=== PATIENT | male | born 1965 | race Caucasian/White ===

== ENCOUNTER 2016-06-13 11:14 | Inpatient (IN) | payer MEDICAID, OTHER ==
[~2016-06-13] VITALS: Ht 175.3 cm; Wt 178.3 kg
[2016-06-13 11:35] VITALS: BP 185/101
[2016-06-13] MEDS ORDERED: FAMOTIDINE 20 MG/2 ML VIAL IVP ONE (11:35)
[2016-06-13] MEDS ORDERED: NACL 0.9% 1,000 ML IV SCH (11:35)
[2016-06-13] MEDS ORDERED: ONDANSETRON 4 MG/2 ML VIAL IVP ONE ×2 (11:35→16:25)
[2016-06-13] MEDS ORDERED: ALEVE220 MG PO (11:37)
--- NOTE | 2016-06-13 11:39 | NUR ---
Patient ambulated to bed 6 with family. RN evaluating patient at bedside.
--- NOTE | 2016-06-13 11:42 | NUR ---
Note undone in EDM - 06/13/16 at 1331 by [email or web address] 50/M BIB FAMILY C/O EPIGASTRIUM PAIN & DIARRHEA X 3 DAYS. PT DENIES N/V; SKIN IS PINK/WARM/DRY; AAOX4 WITH EVEN AND STEADY GAIT; LUNGS CLEAR BL; HR EVEN AND REGULAR; PT DENIES ANY FEVER, CP, SOB, OR COUGH AT THIS TIME; PATIENT STATES PAIN OF 7/10 AT THIS TIME; PATIENT POSITIONED FOR COMFORT; HOB ELEVATED; BEDRAILS UP X2; BED DOWN. ER MADE AWARE OF PT STATUS.
--- NOTE | 2016-06-13 11:42 | NUR ---
50/M BIB FAMILY C/O EPIGASTRIUM PAIN & DIARRHEA X 3 DAYS. PT STATES PT HAS DIARRHEA 3 TIMES XTODAY. PT DENIES N/V; SKIN IS PINK/WARM/DRY; AAOX4 WITH EVEN AND STEADY GAIT; LUNGS CLEAR BL; HR EVEN AND REGULAR; PT DENIES ANY FEVER, CP, SOB, OR COUGH AT THIS TIME; PATIENT STATES PAIN OF 7/10 AT THIS TIME; PATIENT POSITIONED FOR COMFORT; HOB ELEVATED; BEDRAILS UP X2; BED DOWN. ER MD MADE AWARE OF PT STATUS.
--- NOTE | 2016-06-13 11:44 | NUR ---
ER MD DR RIVERA EVALUATING PT AT BEDSIDE.
--- NOTE | 2016-06-13 12:37 | NUR ---
PT TAKEN TO CT VIA GURARACELI ACCOMPANIED BY LOCK AND DAM EQUIPMENT REPAIRER.
--- NOTE | 2016-06-13 13:00 | NUR ---
Patient appears to be resting comfortably in bed. Vital Signs within normal limits. Respirations even and unlabored. WILL CONTINUE TO MONITOR.
--- NOTE | 2016-06-13 13:00 | NUR ---
URINAL PROVIDED TO PT FOR URINE SAMPLE.WILL CONTINUE TO MONITOR.
[2016-06-13] MEDS ORDERED: LACTATED RINGERS 1,000 ML IV ONE (14:00)
[2016-06-13] MEDS ORDERED: ONDANSETRON 4 MG/2 ML VIAL IVP SCH (14:05)
[2016-06-13] MEDS ORDERED: HYDROmorphone 1 MG/ML AMP IVP SCH (14:05)
--- NOTE | 2016-06-13 14:32 | NUR ---
PT TO BE TAKEN TO SURGERY AT 1500 .WILL GIVE REPORT TO SALES RECRUITING COORDINATOR.
--- NOTE | 2016-06-13 14:51 | NUR ---
RECEIVED CALL FROM FUNDING COORDINATOR; FUNDING COORDINATOR STATES WILL COME TO TAKE PT TO SURGERY AND GET REPORT IN ER.
--- NOTE | 2016-06-13 14:58 | NUR ---
Patient will be admitted to care of DR. Bailey MANRIQUE. Admited to M/S. Will go to room 105B Belongings list completed. Report to ELECTRONIC COMPONENT PROCESSORLUPE HOLDER. PT TAKEN TO SURGERY VIA RARACELI ACCOMPANIED BY LUPE HOLDER AND LUPE PINEDA AT THIS TIME.
[2016-06-13] MEDS ORDERED: MIDAZOLAM 2 MG/2 ML VIAL ONE (15:14)
[2016-06-13] MEDS ORDERED: fentaNYL 0.05 MG/ML VIAL ONE (15:14)
[2016-06-13] MEDS ORDERED: MEPERIDINE 50 MG/ML SYR ONE (15:15)
[2016-06-13] MEDS ORDERED: BUPIVACAINE-MPF/EPI 0.5% 30 ML VIAL INJ ONE ×2 (15:17→16:52)
[2016-06-13] MEDS ORDERED: HYDROmorphone 1 MG/ML AMP IVP PRN ×2 (15:35→16:00)
[2016-06-13] MEDS ORDERED: ONDANSETRON 4 MG/2 ML VIAL IVP PRN ×2 (15:50→16:00)
[2016-06-13] MEDS ORDERED: LORazepam 2 MG/ML VIAL IVP PRN (15:50)
[2016-06-13] MEDS ORDERED: ACETAMINOPHEN 325 MG TAB PO PRN (15:50)
[2016-06-13] MEDS ORDERED: LACTATED RINGERS 1,000 ML IV SCH (15:57)
[2016-06-13] MEDS ORDERED: diphenhydrAMINE 50 MG/ML VIAL IVP PRN (16:00)
[2016-06-13] MEDS ORDERED: PIPER/TAZO 3.375GM/D5W PREMIX 50 ML IV ONE (16:00)
[2016-06-13] MEDS ORDERED: MEPERIDINE 25 MG/ML SYR IVP PRN (16:00)
[2016-06-13] MEDS ORDERED: PIPERACILLIN/TAZOBACTAM 3.375 GM VIAL IV ONE ×4 (16:03→23:43)
[2016-06-13] MEDS ORDERED: PHENYLEPHRINE 10 MG/ML VIAL IM ONE (16:25)
[2016-06-13] MEDS ORDERED: GLYCOPYRROLATE 0.2 MG/ML VIAL IV ONE (16:25)
[2016-06-13] MEDS ORDERED: DEXAMETHASONE 4 MG/ML VIAL IVP ONE (16:25)
[2016-06-13] MEDS ORDERED: SUCCINYLCHOLINE CHLORIDE 200 MG/10 ML VIAL IV ONE (16:25)
[2016-06-13] MEDS ORDERED: SEVOFLURANE 250 ML BTL INH ONE (16:25)
[2016-06-13] MEDS ORDERED: PROPOFOL 200 MG/20 ML VIAL IV ONE (16:25)
[2016-06-13] MEDS ORDERED: ROCURONIUM 50 MG/5 ML VIAL IV ONE (16:25)
--- NOTE | 2016-06-13 17:35 | NUR ---
PATIENT NOT IN ROOM PER ISIDRO/RN PATIENT IN OR RECOVERY SPECIALIST EMPLOYEE LABOR RELATIONS TO PASS ON TO NOC SHIFT
[2016-06-13 17:55] VITALS: BP 127/70
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
[2016-06-13] MEDS: PIPERACILLIN/TAZOBACTAM 3.375 GM in DEXTROSE 5% 50 ML IV SCH ×3 (18:00→23:49)
[2016-06-13] MEDS: DEXT 5% / NACL 0.45% 1,000 ML IV SCH ×2 (18:00→23:49)
--- NOTE | 2016-06-13 18:30 | NUR ---
PT'S DAUGHTER CAME. SITTING WITH PT NOW. PT STILL SLEEPING. Addendum: 06/13/16 at 1849 by Kelsey Jones RN 1810: V/S 124/71; 65; 96%; 97.2F 1825: V/S 138/85; 66; 96%; 97.9F 1840: V/S 143/94; 70; 96%; 98.8F
--- NOTE | 2016-06-13 18:55 | NUR ---
ENDORSED PT TO THE SUPPLY TECHNICIAN NURSE AT BEDSIDE FOR CONTINUITY OF CARE. PT IS SLEEPING. PT IS IN STABLE CONDITION.
--- NOTE | 2016-06-13 19:28 | NUR ---
RECEIVED REPORT FROM LUPE FELIX, AT BEDSIDE. INITIAL ASSESSMENT AND BODY CHECK DONE. PATIENT AAO X 4, ABLE TO FOLLOW COMMAND AND MAKE NEEDS KNOWN AND AMBULATORY. PATIENT CURRENTLY LYING DOWN ON THE BED. NO S/S OF DISTRESS NOR ANY POTENTIAL COMPLICATION NOTED. SKIN WARM/DRY TO TOUCH WITH NORMAL COLOR. NOTED CLOSED 4 ABDOMINAL INCISIONS WITHOUT ACTIVE BLEEDING NOTED. PATIENT STILL STATED WITH SOME ABDOMINAL PAIN, 6/10, AT THIS TIME. DISCUSSED PLAN OF CARE, PAIN MANAGEMENT AND MEDICATION REGIMEN WITH PATIENT AND PATIENT VERBALIZED UNDERSTANDING. PLACED PATIENT ON SAFETY PRECAUTIONS AND WILL CONTINUE TO MONITOR. CALL LIGHT LEFT WITHIN REACH. FAMILY AT BEDSIDE.
[2016-06-13 20:00] VITALS: BP 138/84
[2016-06-13] MEDS: MORPHINE SULFATE 2 MG/ML SYR IVP PRN (20:01)
--- NOTE | 2016-06-13 20:16 | NUR ---
PT ASLEEP, CAN NOT PERFORM IS
--- NOTE | 2016-06-13 20:41 | NUR ---
ADMINISTERED ABX AND PAIN MEDICATIONS MD'S ORDERED WITH EDUCATION GIVEN. PATIENT COMPLYING WITH MEDICATIONS AND CARE. STATED WITH SOME PAIN RELIEF AFTER 30 MINS POST-MEDICATION. ALL NEEDS ARE ATTENDED. KEPT PATIENT IN COMFORTABLE POSITION/WARM AND WILL CONTINUE TO MONITOR.
[2016-06-14] VITALS: BP 121/73
--- NOTE | 2016-06-14 00:20 | NUR ---
PATIENT RESTED COMFORTABLY IN BED, EASILY AROUSED AND REMAINED IN STABLE CONDITION. NO APPARENT DISTRESS NOTED. WILL CONTINUE TO MONITOR.
--- NOTE | 2016-06-14 01:00 | NUR ---
PATIENT URINATED 800 ML CLEAR/YELLOW URINE. OBTAINED SOME SAMPLE AND SENT TO THE LAB.
--- NOTE | 2016-06-14 04:14 | NUR ---
PATIENT IS CLINICALLY STABLE AND NO APPARENT DISTRESS NOTED. WILL CONTINUE TO MONITOR.
[2016-06-14] MEDS ORDERED: PIPERACILLIN/TAZOBACTAM 3.375 GM VIAL IV ONE (05:14)
[2016-06-14] MEDS: PIPERACILLIN/TAZOBACTAM 3.375 GM in DEXTROSE 5% 50 ML IV SCH (05:14)
[2016-06-14] MEDS: MORPHINE SULFATE 2 MG/ML SYR IVP PRN ×2 (06:05→10:27)
--- NOTE | 2016-06-14 07:12 | NUR ---
ENDORSED PLAN OF CARE TO LUPE FOWLER, AT BEDSIDE. PATIENT RESTED WELL THROUGHOUT THE SHIFT AND REMAINED IN STABLE CONDITION. NO DISTRESS NOTED.
--- NOTE | 2016-06-14 07:13 | NUR ---
RECEIVED REPORT FROM LUPE ORTEGA. PT RESTING ON BED WITH AT BEDSIDE. PT IS AAOX4, IV IS ON THE RT AC, PATENT AND INTACT, INFUSING FLUID WELL. 4 INCISIONS ON ABDOMEN OPEN TO AIR WITH NO DRAINAGE NOTED, S/P LAP APPY. INITIAL ASSESSMENT DONE, NO S/S OF RESPIRATORY DISTRESS OR DISCOMFORT NOTED. DISCUSSED PLAN OF CARE, PT VERBALIZED UNDERSTANDING. SAFETY/FALL PRECAUTION ENFORCED. CALL LIGHT WITHIN REACH. WILL CONTINUE TO MONITOR
[2016-06-14 08:00] VITALS: BP 118/62
[2016-06-14] MEDS: DEXT 5% / NACL 0.45% 1,000 ML IV SCH ×2 (09:59→17:05)
--- NOTE | 2016-06-14 10:26 | NUR ---
PATIENT HAS BEEN SCREENED AND CATEGORIZED HIGH NUTRITION RISK. PATIENT WILL BE SEEN WITHIN 1-2 DAYS OF ADMISSION. 06/14/16-06/15/[address]
--- NOTE | 2016-06-14 10:35 | NUR ---
ENDORSED PT TO LUPE KERR FOR CONTINUITY OF CARE. PT IS STABLE AT THIS TIME.
--- NOTE | 2016-06-14 10:37 | NUR ---
RECEIVED REPORT FROM LUPE COLEY. PT SLEEPING IN BED. NO S/S OF ACUTE DISTRESS. IV SITE PATENT AND INTACT. CALL LIGHT WITHIN REACH. SAFETY MEASURES ENSURED. WILL CONTINUE TO MONITOR.
--- NOTE | 2016-06-14 10:39 | NUR ---
WOUND CARE NOTES: UNABLE TO ASSESS WOUND SITES AT THIS TIME, PATIENT IS ASLEEP. STATED THAT PATIENT JUST GOT HIS PAIN MED AND IF I COULD COME BACK LATER. WILL FOLLOW UP.
--- NOTE | 2016-06-14 11:05 | NUR ---
AWAKE AND ALERT EDUCATION PROVIDED WITH ACKNOWLEDGEMENT ON INCENTIVE SPIROMETRY (IS) TOLERATED ONLY FIVE BREATH HOLDS DUE TO ABDOMINAL PAIN USHA/RN NOTIFIED ENCOURAGED PATIENT TO USE IS EVERY ONE HOUR WHILE AWAKE
--- NOTE | 2016-06-14 12:47 | NUR ---
PT UP AND AMBULATING IN [place]. NO S/S OF ACUTE DISTRESS. PT DENIES ANY DIZZINESS.
[2016-06-14] MEDS: PIPER/TAZO 3.375GM/D5W PREMIX 50 ML IV SCH ×2 (12:56→18:06)
--- NOTE | 2016-06-14 15:50 | NUR ---
PT IS RESTING IN BED. NO S/S OF RESPIRATORY DISTRESS OR DISCOMFORT NOTED. IS AT BEDSIDE. CALL LIGHT WITHIN REACH. WILL CONTINUE TO MONITOR.
[2016-06-14 16:00] VITALS: BP 116/58
--- NOTE | 2016-06-14 17:51 | NUR ---
ENDORSED PLAN OF CARE TO LUPE COLEY.
--- NOTE | 2016-06-14 17:52 | NUR ---
RECEIVED REPORT FROM LUPE KERR. PT IS RESTING ON BED, NO S/S OF RESPIRATORY DISTRESS OR DISCOMFORT NOTED, ALL NEEDS MET AT THIS TIME, FAMILY MEMBERS AT BEDSIDE, CALL LIGHT WITHIN REACH, WILL CONTINUE TO MONITOR.
--- NOTE | 2016-06-14 19:10 | NUR ---
ENDORSED PT TO LVN. TWIN FOR CONTINUE OF CONTINUITY OF CARE. PT IS STABLE AT THIS TIME.
--- NOTE | 2016-06-14 19:11 | NUR ---
RECD. RESTING IN BED, AWAKE, A/OX4, RESPIRATION EVEN AND UNLABORED. IV OF D5 1/2 NS AT 125 ML/HR INFUSING. VOIDING WELL AND AMBULATING TO BR. INCISION IN THE ABDOMEN 4 WITH DERMA GLUE, ALL DRY AND INTACT. ENCOURAGED TO AMBULATE MORE. PAIN /, DOES NOT REQUEST FOR ANY PAIN MEDICATION AT THIS TIME. PLAN OF CARE DISCUSSED. VERBALIZED UNDERSTANDING.
--- NOTE | 2016-06-14 20:00 | NUR ---
Patient's Plan of Care was discussed and reviewed with TOURS HOSTESS: TWIN ROJO
--- NOTE | 2016-06-14 20:15 | NUR ---
DR. GROSS CALLED, ORDERED PATIENT CAN BE DISCHARGE TOMORROW AND TO FOLLOW UP WITH HIM TEN DAYS AFTER DISCHARGE FROM THE HOSPITAL, ALSO ORDERED TO DISCONTINUE IV ZOSYN.
--- NOTE | 2016-06-14 20:30 | NUR ---
INFORMED PATIENT REGARDING POSSIBLE DISCHARGE TOMORROW. DISCHARGE INSTRUCTIONS STARTED. VERBALIZED UNDERSTANDING.
[2016-06-14] MEDS: SACCHAROMYCES 250 MG CAP PO SCH (21:22)
--- NOTE | 2016-06-14 22:50 | NUR ---
WANTS TO BE DISCONNECTED FROM IV MACHINE. FEELS UNCOMFORTABLE BEING WITH IS IV. CLAIMED HE IS ABLE TO DRINK ENOUGH WATER AND ALREADY FOR DISCHARGE TOMORROW.
[2016-06-14] MEDS: HYDROcodone/APAP 5/325 MG 1 TAB TAB PO PRN (22:53)
[2016-06-15] VITALS: BP 108/62
--- NOTE | 2016-06-15 | NUR ---
SLEEPING COMFORTABLY IN BED.
[2016-06-15] MEDS: DEXT 5% / NACL 0.45% 1,000 ML IV SCH ×2 (01:05→09:05)
--- NOTE | 2016-06-15 04:00 | NUR ---
NO DISTRESS NOTED. RESPIRATION EVEN AND UNLABORED.
--- NOTE | 2016-06-15 06:30 | NUR ---
CONDITION REMAIN STABLE. ABLE TO TOLERATE REGULAR DIET, HAD ALREADY BM.
--- NOTE | 2016-06-15 07:14 | NUR ---
CONDITION REMAIN STABLE. ENDORSED TO GEMA.RNs FOR CONTINUITY OF CARE, POSSIBLE DISCHARGE TODAY. REQUESTING FOR PRESCRIPTION FOR PAIN MEDICATION TO BE TAKEN HOME
--- NOTE | 2016-06-15 07:15 | NUR ---
RECEIVED REPORT FROM YUE MURCIA. PT IS SLEEPING. IV IS ON THE RT AC, PATENT AND INTACT. 4 INCISIONS ON ABDOMEN OPEN TO AIR WITH NO DRAINAGE NOTED, S/P LAP APPY. INITIAL ASSESSMENT DONE, NO S/S OF RESPIRATORY DISTRESS OR DISCOMFORT NOTED. SAFETY/FALL PRECAUTION ENFORCED. CALL LIGHT WITHIN REACH. WILL CONTINUE TO MONITOR
[2016-06-15 08:00] VITALS: BP 126/74
[2016-06-15] MEDS: HYDROcodone/APAP 5/325 MG 1 TAB TAB PO PRN (09:07)
--- NOTE | 2016-06-15 09:07 | NUR ---
PT IS RESTING IN BED. COMPLAIN OF 7/10 PAIN. PRN PAIN MEDICATION GIVEN. WILL REASSESS. ALL NEEDS MET AT THIS TIME. CALL LIGHT WITHIN REACH WILL CONTINUE TO MONITOR.
[2016-06-15] MEDS: SACCHAROMYCES 250 MG CAP PO SCH (09:10)
[2016-06-15] MEDS ORDERED: NORCO 325 MG-7.1 TAB PO (11:48)
[2016-06-15] MEDS ORDERED: COLACE100 MG PO (11:48)
--- NOTE | 2016-06-15 11:55 | NUR ---
TAUGHT PT HOW TO USE THE IS. RETURNED DEMO MADE. PT TOLERATED WELL. ALL NEEDS MET AT THIS TIME. CALL LIGHT WITHIN REACH. WILL CONTINUE TO MONITOR.
--- NOTE | 2016-06-15 12:45 | NUR ---
DISCHARGE INSTRUCTIONS AND PRESCRIPTION GIVEN, PT VERBALIZED UNDERSTANDING, REMOVED ID WRISTBAND, IV, CATHETER TIP INTACT. PICTURE TAKEN OF ABDOMINAL INCISION. PT LEFT THE UNIT AMBULATING ACCOMPANIED BY SISTER. PT STABLE UPON DISCHARGE.
== END 2016-06-15 12:45 | disposition home or self-care (01) | DRG 342 ==
LOC: MED 11:14 → MTU 14:36
PROVIDERS: ADMIT Family Medicine; ATTEND Family Medicine
PROC: 0DTJ4ZZ Resection of Appendix, Percutaneous Endoscopic Approach (ICD-10-PCS; principal; 2016-06-13 15:00)
DX: K35.80 Unspecified acute appendicitis (principal); Z68.43 Body mass index [BMI] 50.0-59.9, adult; E66.01 Morbid (severe) obesity due to excess calories; F17.210 Nicotine dependence, cigarettes, uncomplicated; E83.51 Hypocalcemia; E78.5 Hyperlipidemia, unspecified; R31.9 Hematuria, unspecified; N28.1 Cyst of kidney, acquired; I10 Essential (primary) hypertension; I16.0 Hypertensive urgency